=== PATIENT | female | born 1940 | race Caucasian/White ===

== ENCOUNTER 2018-05-18 08:57 | Day surgery (SDC) | payer OTHER ==
--- OUTSIDE RECORDS SUMMARY | 2018-05-18 09:16 | XMS REPORT | Clinical Summary ---
:1940 Author Organization [facility] Address [address] [place] [address] Care Team Providers Name Role Phone Sharpkaren Primary Care Provider Allergies Active Allergy Reactions Severity Noted Date Comments Benzoate Analogues Rash Low 10/05/2015 benzoperoxide Hydroxychloroquine Hives, Anxiety Low 10/05/2015 Unsure of reaction Pentazocine Lactate 10/05/2015 Unsure of reaction Medications Medication Sig Dispensed Refills Start Date End Date Status levothyroxine Take 88 mcg by 0 Active (SYNTHROID, LEVOTHROID) mouth daily. 88 MCG tabletIndications: hypothyroidism rosuvastatin (CRESTOR) Take 40 mg by 0 Active 40 MG tablet mouth daily. furosemide (LASIX) 40 MG Take 40 mg by 0 Active tablet mouth daily. amiodarone (PACERONE) Take 400 mg by 0 Active 400 MG mouth daily. 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 and thrombosis of deep vessels of lower extremity (HCC), Chronic diastolic heart failure, CAD (coronary artery disease), Dyslipidemia, Atrial fibrillation, Hypothyroidism (acquired), Chronic pulmonary heart disease (HCC) omeprazole (PRILOSEC) 20 Take 20 mg by 0 Active MG capsuleIndications: mouth daily. 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 traMADol (ULTRAM) 50 mg Take 50 mg by 0 Active tablet mouth every 6 (six) hours as needed for Pain. 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 Last Filed Vital Signs Not on file Plan of Treatment Not on file Results Not on fileafter 05/17/2017 Insurance Payer Benefit Plan / Group Subscriber ID Type Phone Address MEDICARE MEDICARE A B xxxxxxxxxx Medicare [employer] - [place] [place] HMO POS SELECT xxxxxxxxx HMO/POS CARE CHOICE Advance Directives For more information, please contact:[address] [phone] Code Status Date Activated Date Inactivated Comments Full Code 09/30/2015 6:54 PM 10/09/2015 12:13 PM This code status was determined by: Patient
[2018-05-18] MEDS ORDERED: CYCLOPENTOLATE 1% OPTH 2 ML ONE (09:29)
[2018-05-18] MEDS ORDERED: PHENYLEPHRINE 10% OPTH 5ML ONE (09:30)
[2018-05-18] MEDS ORDERED: NA CHLORIDE 0.9% 500 ML ONE (09:30)
[2018-05-18] MEDS: TETRACAINE HCL 0.5% 2ML OPTH ONE ×2 (09:31→11:03)
[2018-05-18] MEDS: BUPIVACAINE 0.25% PF 10 ML VIAL ONE ×2 (09:32→11:04)
[2018-05-18] MEDS: LIDOCAINE 2% MPF 5 ML VIAL ONE ×2 (09:32→11:04)
[2018-05-18] MEDS ORDERED: CYCLOPENTOLATE 1% OPTH 2 ML OPTH ONE ×2 (09:42→09:56)
[2018-05-18] MEDS ORDERED: PHENYLEPHRINE 10% OPTH 5ML OPTH ONE ×2 (09:42→09:56)
[2018-05-18] MEDS ORDERED: NS 0.9% VIAL 10 ML ONE (10:07)
[2018-05-18] MEDS: BALANCED SALT IRRIG PLAIN 500 ML BTL IRR ONE ×2 (10:30→11:09)
[2018-05-18] MEDS: EPINEPHRINE/PF 1 MG/ML AMP ONE ×2 (10:30→11:09)
[2018-05-18] MEDS: MOXIFLOXACIN HCL 10 DROPS/ML **OR USE OPTH ONE ×2 (10:31→11:09)
[2018-05-18] MEDS: DUOVISC 1 KIT OPTH ONE ×2 (10:31→11:09)
[2018-05-18] MEDS ORDERED: PROPOFOL 200 MG/20 ML VIAL IV ONE (10:33)
[2018-05-18] MEDS ORDERED: LIDOCAINE 2% MPF 5 ML VIAL ONE ×2 (10:33→11:27)
[2018-05-18] MEDS ORDERED: HYDRALAZINE HCL 20 MG/ML VIAL ONE (11:35)
--- NOTE | 2018-05-18 11:46 | P.BOP ---
Preoperative diagnosis: Nuclear sclerotic and posterior subcapsular cataract OD Postoperative diagnosis: Same Primary procedure: Phacoemulsification with IOL OD Estimated blood loss: None Anesthesia: Local (Subtenon's infusion with anesthesia for cataract surgery) Complications: None Implants: ZCB00 +21.5 Transferred to: Other (Day surgery) Condition: Good
[2018-05-18 12:16] VITALS: BP 171/75; TEMP 98.4; O2SAT 100
--- NOTE | 2018-05-18 22:32 | OP ---
Date of Procedure: 05/18/2018 Surgeon: Faviola Soriano MD Anesthesiologist: Raul Trujillo CRNA and Navi Hines MD. Preoperative Diagnoses: Nuclear sclerotic and posterior subcapsular cataract, right eye. Operation Performed: Phacoemulsification with intraocular lens implant, right eye. Anesthesia: Per cataract surgery. Complications: Description Of Procedure: In day surgery, the patient was prepped with Betadine and draped. A conju nctival incision was made in the inferior nasal quadrant with Gary scissors. A sub-Tenon block c onsisting of a 1:1 mixture of 2% Xylocaine and 0.25% bupivacaine was placed through the conjunctival incision with a blunt cannula. A Honan balloon was placed over the eye and the patient was transferr ed to the operating room. In the operating room the patient was prepped and draped in the usual sterile fashion for ophthalmic surgery. A lid speculum was placed in the right eye. Two paracentesis sites were made superiorly an d inferiorly in the limbal cornea. Viscoat was placed in the anterior chamber and a crescent blade w as used to make a corneal groove and tunnel, and a keratome was used to enter the anterior chamber. Provisc was placed in the anterior chamber and a 360 degree capsulotomy was performed with a cystitom e. The lens was hydrodissected with BSS and rotated freely. The lens was removed with a stop and ch op technique. 20.51 phaco CDE was used to remove the lens. Residual cortex was removed with the irr igation and aspiration. Provisc was placed in the capsular bag. A ZCB00 +21.5 lens was placed in th e capsular bag without complications. Irrigation and aspiration were used to remove residual viscoel astic. The paracentesis sites were hydrated with BSS. The wound and paracentesis sites were inspect ed and found to be watertight. Vigamox 0.07 cc was placed intracamerally at the end of the procedure . The eye was irrigated with balanced salt solution. The eye was patched with a soft cotton patch a nd Shaver metal shield. The patient was returned to day surgery in good condition. Comments: Trace residual PSC remained at the end of surgery. Discharge Instructions: Ms. Helms is discharged to home in good condition and is to follow up with Dr. Soriano in the morning. EMMETT/FREEMAN Voice ID: [id number] Report ID: [id number]
== END 2018-05-18 12:18 | disposition home or self-care (01) ==
LOC: OR 08:57
PROVIDERS: ATTEND Ophthalmology Retina Specialist
PROC: 08RJ3JZ Replacement of Right Lens with Synthetic Substitute, Percutaneous Approach (ICD-10-PCS; principal; 2018-05-18 10:00)
DX: H25.11 Age-related nuclear cataract, right eye (principal); H25.041 Posterior subcapsular polar age-related cataract, right eye; E03.9 Hypothyroidism, unspecified; E78.00 Pure hypercholesterolemia, unspecified; I10 Essential (primary) hypertension; M81.0 Age-related osteoporosis without current pathological fracture; M06.9 Rheumatoid arthritis, unspecified; Z95.1 Presence of aortocoronary bypass graft; Z79.01 Long term (current) use of anticoagulants; Z79.899 Other long term (current) drug therapy
CPT/HCPCS: 66984; J0360; J2704; J0171

== ENCOUNTER 2018-07-28 06:30 | Day surgery (SDC) | payer OTHER, BC ==
[2018-07-27 14:25] LABS: Absolute Lymphocytes (CBC) 1.5 K/uL (0.7-4.9); Absolute Monocytes 0.5 K/uL (0.1-1.3); Absolute Neutrophil 3.2 K/uL (1.8-8.0); Basophils % 0.8 % (0-1.3); Eosinophils % 1.6 % (0-4.4); Hematocrit 35.1 % (36.0-45.0); MPV 8.5 fL (7.6-11.3); Monocytes % 9.4 % (3.3-12.3); RBC Red Blood Cell Count 3.67 M/uL (3.86-4.86)
[2018-07-27 14:29] LABS: Protime INR 1.35
[2018-07-27 14:39] LABS: Potassium 4.5 mmol/L (3.5-5.1)
--- NOTE | 2018-07-27 14:46 | RAD REPORT ---
EXAM DESCRIPTION: RAD - Chest Pa And Lat (2 Views) - 07/27/2018 2:35 pm CLINICAL HISTORY: Preop chest, pending cardiac catheterization COMPARISON: November 2015 TECHNIQUE: PA and lateral views of the chest were obtained. FINDINGS: The lungs are clear of a focal abnormality. No failure or volume overload. Scattered fibro tic lung changes match comparison. Sternotomy wires are in place. Heart size is normal and central vasculature is within normal limits. No pleural effusion or pneumothorax seen. Osteopenic and degen erative bony changes are present. Partial compression fracture midthoracic vertebrae noted. No aortic abnormality. IMPRESSION: No acute cardiopulmonary process. Partial compression fracture midthoracic spine. No lytic or blastic change. This is likely chronic in the absence of any acute midthoracic symptoms.
--- OUTSIDE RECORDS SUMMARY | 2018-07-28 06:35 | XMS REPORT | Clinical Summary ---
:[address] [facility] Address [address] [place] [address] Care Team Providers Name Role Phone Sharpkaren [...] Not on file Results Not on fileafter 07/27/2017 Insurance Payer Benefit Plan / Group Subscriber ID Type Phone Address MEDICARE MEDICARE A B xxxxxxxxxx Medicare UNITED HE[employer] - [place]GD [place] HMO POS SELECT xxxxxxxxx HMO/POS CARE CHOICE Advance Directives For more information, please contact:[address] [phone] Code Status Date Activated Date Inactivated Comments Full Code 09/30/2015 6:54 PM 10/09/2015 12:13 PM This code status was determined by: Patient
[2018-07-28] MEDS ORDERED: NA CHLORIDE 0.9% 500 ML ONE (07:26)
[2018-07-28] MEDS ORDERED: HEPA 1000U/500MLS 1,000 UNIT/500 ML BAG IV ONE (07:55)
[2018-07-28] MEDS ORDERED: ATROPINE SULF 1 MG/10 ML SYR IV ONE (07:56)
[2018-07-28] MEDS ORDERED: FENTANYL CITR 100 MCG/2 ML ONE (07:56)
[2018-07-28] MEDS ORDERED: LIDOCAINE 1% MPF 30 ML VIAL ONE (07:56)
[2018-07-28] MEDS ORDERED: MIDAZOLAM HCL 2 MG/2 ML INJ ONE (07:56)
[2018-07-28] MEDS ORDERED: NA CHLORIDE 0.9% 0 ML ONE (07:56)
[2018-07-28] MEDS ORDERED: METOPROLOL TARTRATE 5 MG/5 ML INJ IV ONE ×2 (08:09→08:16)
[2018-07-28] MEDS ORDERED: cloNIDine HCl 0.1 MG TAB ONE (08:20)
[2018-07-28 11:09] VITALS: BP 119/64; TEMP 96.8; O2SAT 98
--- NOTE | 2018-07-28 18:14 | OP ---
Surgeon: Mario Perez MD Principal Associate: Taya Laguna. Admitted to my service as an outpatient today 07/28/2018. Procedures: Left heart catheterization, saphenous vein graft injection to the right coronary artery graft and a left internal mammary artery injection. History: Ms. Helms is 78, has a history of CAD. She is status post aortic valve replacement. RCA graft, circumflex stent with chest pain, positive stress test, hypertension, poorly controlled, admi tted as an outpatient today, prepped and draped in the routine sterile fashion, given Versed for IV s edation. She was given also 10 mg of IV Lopressor for her hypertension and 0.1 mg of clonidine as we ll for her hypertension. Left heart catheterization, vein graft injection and LINDER injection were do ne using a 6-Lao sheath in the right common femoral artery. Jason catheter was used. She was f ound to have a 40% LAD stenosis and 90% first diagonal stenosis, patent circumflex stent, 100% RCA wi th a patent graft to the RCA. The LINDER was injected, but it was not used. There were no complicatio ns. Blood Loss: 5 cc. Postoperative Diagnoses: Hypertension, coronary artery disease, moderate status post aortic valve re placement. Plan: Medical therapy. I am going to increase her propranolol to 80 b.i.d., and she can resume her Xarelto in a day or 2. Anesthesia: Total conscious sedation was 30 minutes. ROBB/FREEMAN Voice ID: [id number] Report ID: [id number]
== END 2018-07-28 10:50 | disposition home or self-care (01) ==
LOC: CCL 06:30
DX: I25.10 Atherosclerotic heart disease of native coronary artery without angina pectoris (principal); I25.82 Chronic total occlusion of coronary artery; I35.8 Other nonrheumatic aortic valve disorders; I65.23 Occlusion and stenosis of bilateral carotid arteries; I73.9 Peripheral vascular disease, unspecified; I10 Essential (primary) hypertension; E78.6 Lipoprotein deficiency; E03.9 Hypothyroidism, unspecified; K21.9 Gastro-esophageal reflux disease without esophagitis; F41.9 Anxiety disorder, unspecified; Z95.2 Presence of prosthetic heart valve; Z95.1 Presence of aortocoronary bypass graft; Z95.5 Presence of coronary angioplasty implant and graft; Z79.01 Long term (current) use of anticoagulants; Z86.718 Personal history of other venous thrombosis and embolism; Z88.8 Allergy status to other drugs, medicaments and biological substances; Z91.048 Other nonmedicinal substance allergy status; Z82.49 Family history of ischemic heart disease and other diseases of the circulatory system
CPT/HCPCS: 85025; 80048; 36415; 85610; 85730; 71046; 93455; C1893; J2250; J3010; J0583

== ENCOUNTER 2019-11-15 23:26 | Emergency (ER) | payer OTHER, BC ==
[2019-11-15] MEDS ORDERED: AMIODARONE HCL 150 MG/3 ML INJ IV ONE (23:27)
[2019-11-15] MEDS ORDERED: NA CHLORIDE 0.9% 1,000 ML IV ONE (23:27)
[2019-11-15] MEDS ORDERED: DOPAMINE 400 MG/250ML D5W PREMIX IV ONE (23:27)
[2019-11-15] MEDS ORDERED: Caclcium Chloride 10% INJ SYR IV ONE (23:27)
[2019-11-15] MEDS ORDERED: EPINEPHrine 1 MG/10 ML SYR IV ONE (23:27)
--- OUTSIDE RECORDS SUMMARY | 2019-11-15 23:28 | XMS REPORT | Clinical Summary ---
:[address] [facility] Address [address] [place] [address] Care Team Providers Name Role Phone Sharpkaren Primary Care Provider Allergies Active Allergy Reactions Severity Noted Date Comments Benzoate Analogues Rash Low 10/05/2015 benzopero xide Hydroxychloroquine Hives, Anxiety Low 10/05/2015 Unsure of reaction Pentazocine Lactate 10/05/2015 Unsure o f reaction Medications Medication Sig Dispensed Refills Start Date End Date Status levothyroxine Take 88 mcg by 0 A ctive (SYNTHROID, LEVOTHROID) mouth daily. 88 MCG tabletIndications: a condition with low thyroid hormone levels rosuvastatin (CRESTOR) Take 40 mg by 0 [...] Not on file Results Not on fileafter 11/14/2018 Insurance Payer Benefit Plan / Group Subscriber ID Type Phone A ddress MEDICARE MEDICARE A B xxxxxxxxxx Medicare [facility] [place] HMO POS SELECT xxxxxxxxx HMO/POS CARE CHOICE Advance Directives For more information, please contact:[address] [place], [place] [phone] Code Status Date Activated Date Inactivated Comments Full Code 09/30/2015 6:54 PM 10/09/2015 12:13 PM This code status was determined by: Patient
[2019-11-15] MEDS ORDERED: HEPARIN 5000 UNIT/ML 1 ML VIAL ONE (23:53)
[2019-11-15] MEDS ORDERED: HEPARIN/D5W 25,000 UNIT/500 ML BAG IV ONE (23:54)
[2019-11-16 00:05] LABS: Absolute Lymphocytes (CBC) 4.2 K/uL (0.7-4.9); Basophils % 1.2 % (0-1.3); Hematocrit 25.7 % (36.0-45.0); Lymphocytes % 50.5 % (15.3-44.8); MPV 9.1 fL (7.6-11.3)
[2019-11-16 00:08] LABS: Protime INR 2.48
[2019-11-16] MEDS ORDERED: EPINEPHrine 1 MG/10 ML SYR ONE (00:08)
[2019-11-16] MEDS ORDERED: TENECTEPLASE 50 MG/10 ML VIAL IV ONE (00:08)
[2019-11-16] MEDS ORDERED: AMIODARONE IN DEXTROSE,ISO-OSM 0 MG/0 ML BAG IV ONE (00:29)
[2019-11-16 00:31] LABS: Arterial Blood Carboxyhemoglob 1.2 % (0-1.5); Blood Gas Oxyhemoglobin 97.6 % (94-97); Blood O2 Saturation 99.8 % (92-98.5)
[2019-11-16 00:37] LABS: Albumin 2.3 g/dL (3.4-5.0); Bilirubin Direct 0.1 mg/dL (0-0.2); Bilirubin Total 0.2 mg/dL (0.2-1.0); Magnesium 2.2 mg/dL (1.8-2.4); Potassium 5.5 mmol/L (3.5-5.1); Protein, Total 6.4 g/dL (6.4-8.2)
[2019-11-16 00:38] LABS: Troponin (Emerg Dept Use Only) 0.59 ng/mL (0.0-0.045)
--- NOTE | 2019-11-16 00:38 | EDPHYS ---
Physician Documentation [facility] Name: Arti Helms Age: 79 yrs Sex: Female : 1940 Arrival Date: 11/15/2019 Time: 23:40 Bed 3 Private MD: ED Physician Jasiel Vargas HPI: 11/15 00:38 This 79 yrs old Female presents to ER via EMS with complaints of CPR. jr8 00:38 Preceding the arrest, the patient collapsed. The arrest occurred at home. Pre-hospital jr8 course: The arrest was witnessed by family. Bystanders at the scene did not perform CPR. EMS care prior to arrival: initiation of ACLS, peripheral IV, was successfully placed. intubation was successfully performed, using a 7.5 ET tube. oxygen, by BV to assist ventilations. 100% by ET tube. backboard, 5 minutes elapsed prior to ACLS. ACLS details: Initial rhythm was PEA. The presenting rhythm is PEA. Airway: Ambu assist ventilation, oral intubation, Medications given by EMS prior to arrival - Epinephrine IV x 3 doses, Response to therapy: continued arrest. The patient has not experienced similar symptoms in the past. It is unknown whether or not the patient has recently seen a physician. Historical: - Allergies: 11/14 23:45 BENZOYL PEROXIDE; sg 23:45 hydroxychloroquine sulfate; sg 23:45 pentazocine lactate; sg - PMHx: 23:45 Blood transfusions; Compression fracture low back; DVT LLE; Essential hand tremors; sg grave's disease; Osteoporosis; PE; Raynaud's Disease; Rheumatoid Arthritis; Systemic and Discoid Lupus; - PSHx: 23:45 Heart stents; Carotid artery stent; CABG; Aortic valve replaced; Filter for clots; sg Spinal surgery; Bunionectomy; Bilat hip surgeries; Right knee surgery; ROS: 11/15 00:38 Unable to obtain ROS due to obtunded state. jr8 Exam: 00:38 Eyes: Periorbital structures: appear normal, Pupils: are fixed and dilated, Lids and jr8 lashes: appear normal. 00:38 Cardiovascular: Rate: actual rate is 50 bpm, Rhythm: regular, Pulses: not palpable, Edema: 4+ edema to level of left midcalf, left ankle, left foot, right midcalf, right ankle and right foot. 00:38 ECG was reviewed by the Attending Physician. 00:38 Respiratory: Breath sounds: rales, that are mild, are heard diffusely, Respiratory rate: 10 bpm via bvm 00:38 Abdomen/GI: Inspection: distension, that is mild, scabs noted throughout abdomen. No bruising or other signs of trauma noted , Palpation: soft. 00:38 Skin: Appearance: Color: cyanotic, pale, Temperature: cool. Vital Signs: 11/14 23:41 BP 109 / 68; Pulse 62; Resp 18 A; Pulse Ox 98% on 15 lpm ETT ambu; sg 23:46 BP 68 / 57; Pulse 74; Resp 18 A; Pulse Ox 98% on 15 lpm ETT ambu; sg 11/15 00:00 BP 57 / 23; Pulse 50 MON; Resp 18 A; sg 00:05 BP 77 / 58; Pulse 63 MON; Pulse Ox 99% on ETT vent; sg 00:08 Weight 111.13 kg; sg 00:10 BP 67 / 55; Pulse 48 MON; Resp 18; Pulse Ox 98% on ETT ambu; sg Tingley Coma Score: 00:38 Eye Response: none(1). Verbal Response: none(1). Motor Response: none(1). Modifying jr8 Factors: Intubated. Total: 3. Procedures: 00:34 CPR: Initial patient assessment: unresponsive, cyanotic, pale, intubated, Ambu jr8 ventilation, pulses absent w/ compressions, The presenting cardiac rhythm is PEA. respirations assisted with BVM, ventilations per thumper, Compressions: began prior to arrival. Meds given: See Meds list. Defibrillation: 200 joules X 1. regained rhythm, intermittently, despite ED evaluation and treatment, the patient . Family notified. CPR was stopped at 12:22. Central Line: the site was prepped with Betadine, in sterile fashion, a triple lumen catheter was inserted, in the right femoral vein, in 1 attempts. placement was verified, by blood return, the site was dressed with Tegaderm, using sterile technique. 00:38 Ultrasound: Type: Cardiac exam, Bed side US of cardiac completed. Akinetic heart noted jr8 with no rhythmic activity . MDM: 00:09 Patient medically screened. jr8 00:32 Data reviewed: vital signs, nurses notes, lab test result(s), EKG. ED course: Patient fidelia had ROSC three times while in ED. Discussed severity of condition with patients and family. They initially wanted everything done but now wants us to withdrawal care at this time since she arrested again. Patient official TOD is 12:22. PEA with no cardiac activity via US and no pulses present. Family notified at that time . 00:34 Counseling: I had a detailed discussion with the patient and/or guardian regarding: the fidelia historical points, exam findings, and any diagnostic results supporting the discharge/admit diagnosis, lab results. ED course: Patient was initially transferred to [facility] for STEMI management but was canceled after she lost pulse again. 11/14 23:50 Order name: Basic Metabolic Panel [facility] 11/14 23:50 Order name: CBC with Diff; Complete Time: 00:46 mg2 11/14 23:50 Order name: LFT's; Complete Time: 00:46 mg2 11/14 23:50 Order name: Magnesium; Complete Time: 00:46 mg2 11/14 23:50 Order name: NT PRO-BNP; Complete Time: 00:46 mg2 11/14 23:50 Order name: PT-INR; Complete Time: 00:46 mg2 11/14 23:50 Order name: Troponin (emerg Dept Use Only); Complete Time: 00:46 mg2 11/14 23:51 Order name: Basic Metabolic Panel; Complete Time: 00:46 EDMS 11/15 00:12 Order name: Manual Differential; Complete Time: 00:46 EDMS 11/15 00:14 Order name: FSBG - FOR PT WITH NO ID; Complete Time: 00:46 sg 11/15 00:30 Order name: ABG Arterial Blood Gas; Complete Time: 00:46 EDMS 11/15 00:40 Order name: Slides for Pathologist Review EDIA 11/14 23:50 Order name: EKG; Complete Time: 23:51 mg2 11/14 23:50 Order name: Cardiac monitoring; Complete Time: 23:51 mg2 11/14 23:50 Order name: EKG - Nurse/Tech; Complete Time: 23:51 mg2 11/14 23:50 Order name: IV Saline Lock; Complete Time: 23:51 mg2 11/14 23:50 Order name: Labs collected and sent; Complete Time: 23:51 mg2 11/14 23:50 Order name: O2 Per Protocol; Complete Time: 23:51 mg2 11/14 23:50 Order name: O2 Sat Monitoring; Complete Time: 23:50 mg2 EC:38 Rate is 104 beats/min. Rhythm is regular, Sinus tachycardia. Right axis deviation jr8 noted. QRS interval is normal at 116 msec. QT interval is normal at 384 msec. No Q waves. T waves are Normal. ST Segment is elevated in leads V1, V2, V3, V4, V5, >5mm. Clinical impression: Anterior MO - acute and Lateral MO - acute. Interpreted by me. Reviewed by me. Administered Medications: 11/14 23:33 Drug: Sodium Bicarbonate 1 amp Route: IVP; Site: left hand; sg 23:38 Drug: amiodarone 150 mg Route: IVP; Site: left hand; sg 23:48 Drug: EPINEPHrine 0.1mg/mL 1:10,000 1 mg Route: IVP; Site: left hand; sg 23:50 Drug: Dopamine drip 5 mcg/kg/min - (DOPamine 400 mg, D5W 250 ml) Route: IV; Rate: sg calculated rate; Site: right femoral; 11/15 00:21 Follow up: Response: No adverse reaction; IV Status: Order to discontinue infusion sg 11/14 23:56 Drug: EPINEPHrine 0.1mg/mL 1:10,000 0.2 mg/kg Route: IVP; Site: right femoral; sg 11/15 00:01 Drug: EPINEPHrine 0.1mg/mL 1:10,000 1 mg Route: IVP; Site: right femoral; sg 00:03 Drug: Tenecteplase 50 mg {Co-Signature: mg2 (Bud Croft RN).} Route: IV; Rate: sg calculated rate; Site: right femoral; 00:03 Follow up: Response: No adverse reaction; IV Status: Completed infusion sg 00:04 Drug: EPINEPHrine 0.1mg/mL 1:10,000 1 mg Route: IVP; Site: right femoral; sg 00:11 Drug: Heparin (MO Drip) 12 units/kg/hr - (HEParin 54747 units, D5W 500 ml) sg {Co-Signature: mg2 (Bud Croft RN).} Route: IV; Rate: calculated rate; Site: right femoral; 00:21 Follow up: Response: No adverse reaction; IV Status: Order to discontinue infusion sg 00:12 Drug: Heparin (MO-Bolus with thrombolytic) - HEParin 60 units/kg {Co-Signature: mg2 sg (Bud Croft RN).} Route: IVP; Site: right femoral; 00:18 Follow up: Response: No adverse reaction sg 00:27 Not Given (Other Intervention Used): Heparin (MO-Bolus with thrombolytic) - HEParin 60 sg units/kg IVP once; Max 4000 units Disposition: Patient pronounced on 11/16/19 00:22 by Avila Jarrell. Impression: ST elevation (STEMI) myocardial infarction involving left anterior descending coronary artery, ST elevation (STEMI) myocardial infarction involving left circumflex coronary artery, Cardiac arrest due to underlying cardiac condition. - Released to Home. Signatures: Dispatcher [employer] EDMS Paolo Philippe RN RN sg Avila Jarrell, DALY KAUFFMAN jr8 Bud Croft RN RN mg2 Bud Croft RN mg2 Corrections: (The following items were deleted from the chart) 00:36 11/14 23:51 Chest Single View+[email or web address] ordered. EDIA EDIA 11/15 06:14 00:38 11/16/2019 00:38 Patient pronounced on 11/16/2019 at 00:22 by Avila Jarrell. sg Impression: ST elevation (STEMI) myocardial infarction involving left anterior descending coronary artery; ST elevation (STEMI) myocardial infarction involving left circumflex coronary artery; Cardiac arrest due to underlying cardiac condition. Released to Home. jr8
--- NOTE | 2019-11-16 00:38 | ER ---
Nurse's Notes [facility] Name: Arti Helms Age: 79 yrs Sex: Female : 1940 Arrival Date: 11/15/2019 Time: 23:40 Bed 3 Private MD: Diagnosis: ST elevation (STEMI) myocardial infarction involving left anterior descending coronary artery;ST elevation (STEMI) myocardial infarction involving left circumflex coronary artery;Cardiac arrest due to underlying cardiac condition Presentation: 11/14 23:26 Chief complaint: EMS states: pt was using the restroom when family saw her lean forward sg and go unresponsive, family called for EMS help, EMS toned for unresponsive pt at 2230, EMS started CPR upon arrival. Care prior to arrival: Assisted ventilation, Oral intubation, CPR via thumper performed by EMS and is still in progress Placed on backboard. Medication(s) given: EPI X 3 IV initiated. I/O to left tib, I/O to right shoulder Oxygen administered. via AMBU bag. Compressions began at 22:30. 23:26 Method Of Arrival: EMS: [facility] sg 23:26 Acuity: MERNA 1 sg Historical: - Allergies: 23:45 BENZOYL PEROXIDE; sg 23:45 hydroxychloroquine sulfate; sg 23:45 pentazocine lactate; sg - PMHx: 23:45 Blood transfusions; Compression fracture low back; DVT LLE; Essential hand tremors; sg grave's disease; Osteoporosis; PE; Raynaud's Disease; Rheumatoid Arthritis; Systemic and Discoid Lupus; - PSHx: 23:45 Heart stents; Carotid artery stent; CABG; Aortic valve replaced; Filter for clots; sg Spinal surgery; Bunionectomy; Bilat hip surgeries; Right knee surgery; Screenin:26 Abuse screen: unable to assess. Nutritional screening: unable to assess. Tuberculosis sg screening: unable to assess. Assessment: 23:26 CPR assessment: unresponsive, no respiratory effort, intubated, Ambu ventilation, sg cyanotic, pale, pulses present w/ compressions. Cardiac rhythm is PEA. 23:34 Reassessment: pulse check, Vtach on the monitor, rhythm shocked with 200 J of sg unsynchronized cardio version, pt to sinus tach on the monitor with palpable pulses via bilateral femoral area per ERP. 23:55 CPR assessment: unresponsive. CPR assessment: no respiratory effort, Ambu ventilation, sg pale, pulses present w/ compressions, pt remains intubated at this time. Cardiac rhythm is PEA. 11/15 00:01 Reassessment: PEA, no pulses palpated, CPR continues. sg 00:04 Reassessment: PEA per Ava RESTRIKE HAMMER OPERATOR, Avila KAUFFMAN, administered EPI IVP as ordered, CPR sg continues. 00:05 Reassessment: pulse check by ERP at this time. sg 00:06 Reassessment: palpable pulses at this time. sg 00:17 Reassessment: HR on monitor 32 bpm, no palpable pulses at this time, ERP Avila KAUFFMAN at bedside with [employer] nurse, hold CPR per pt family wishes, ultrasound to bedside per ERP order. 00:18 Reassessment: ultrasound at bedside for verification of PEA at this time. sg 00:19 Reassessment: ETCO2 dropped to 15, Avila KAUFFMAN at bedside, pulse check with no palpable sg pulses, ultrasound at bedside performed by ERP Avila KAUFFMAN. 00:20 Reassessment: no activity reported by ERP via ultrasound at this time. sg 00:22 Reassessment: Time of 21. sg 00:50 Reassessment: [facility] contacted, coordinator Taya, case number is [id number], sg reports is not a candidate for donation at this time. 02:38 Reassessment: Judge Spear at bedside at this time, awaiting orders to release the body sg at this time. 06:12 Reassessment: please note no personal effects were with pt while in the care of the ED. sg 06:16 Reassessment: pt released to [facility] with undertaker. sg Vital Signs: 11/14 23:41 BP 109 / 68; Pulse 62; Resp 18 A; Pulse Ox 98% on 15 lpm ETT ambu; sg 23:46 BP 68 / 57; Pulse 74; Resp 18 A; Pulse Ox 98% on 15 lpm ETT ambu; sg 11/15 00:00 BP 57 / 23; Pulse 50 MON; Resp 18 A; sg 00:05 BP 77 / 58; Pulse 63 MON; Pulse Ox 99% on ETT vent; sg 00:08 Weight 111.13 kg; sg 00:10 BP 67 / 55; Pulse 48 MON; Resp 18; Pulse Ox 98% on ETT ambu; sg Vitals: 11/14 23:55 Cardiac Rhythm Assessment PEA. sg Fingal Coma Score: 11/15 00:38 Eye Response: none(1). Verbal Response: none(1). Motor Response: none(1). Modifying jr8 Factors: Intubated. Total: 3. ED Course: 11/14 23:26 Arm band placed on. sg 23:26 Inserted saline lock: 20 gauge in left hand, using aseptic technique. sg 23:29 Patient has correct armband on for positive identification. industrial spray painter on. Pulse sg ox on. NIBP on. pt placed to [facility]. 23:39 EKG completed in triage. Results shown to MD. sg 23:40 Patient arrived in ED. sg 23:43 Triage completed. sg 11/15 00:00 Assisted provider with central line placement. Set up central line tray. Triple lumen sg line placed in right femoral. Line placed by Avila KAUFFMAN Placement verified by blood return, Dressed with Tegaderm, Blood was collected. Was procedure site sterilized? Yes, with chlorhexidine. Was the site allowed to dry? Yes. Were unused ports clamped during insertion? Yes. Was a 2nd qualified MD obtained after 3 unsuccessful insertion attempts? No. Was blood aspirated from each lumen? Yes. 00:05 NGT: inserted 16 Fr. via left nare. verified placement of air over stomach, verified mg2 return of gastric contents, Patient tolerated well. 00:07 Paolo Philippe, GILBERT is Primary Nurse. sg 00:09 Avila Jarrell PA is PHCP. jr8 00:09 Jasiel Vargas MD is Attending Physician. jr8 00:10 Monsalve cath inserted, using sterile technique, 16 Fr., by ED staff, balloon inflated. mg2 00:37 Avila Jarrell PA is Pronouncing Provider. jr8 00:38 Notified Nurse Practitioner and/or Physician [place] Operator of a critical lab result(s), bb troponin of 0.59 Avila KAUFFMAN notified. 06:16 all invasive medical equipment remains intact with the pt for transport to home.sg Administered Medications: 11/14 23:33 Drug: Sodium Bicarbonate 1 amp Route: IVP; Site: left hand; sg 23:38 Drug: amiodarone 150 mg Route: IVP; Site: left hand; sg 23:48 Drug: EPINEPHrine 0.1mg/mL 1:10,000 1 mg Route: IVP; Site: left hand; sg 23:50 Drug: Dopamine drip 5 mcg/kg/min - (DOPamine 400 mg, D5W 250 ml) Route: IV; Rate: sg calculated rate; Site: right femoral; 11/15 00:21 Follow up: Response: No adverse reaction; IV Status: Order to discontinue infusion sg 11/14 23:56 Drug: EPINEPHrine 0.1mg/mL 1:10,000 0.2 mg/kg Route: IVP; Site: right femoral; sg 11/15 00:01 Drug: EPINEPHrine 0.1mg/mL 1:10,000 1 mg Route: IVP; Site: right femoral; sg 00:03 Drug: Tenecteplase 50 mg {Co-Signature: mg2 (Bud Croft RN).} Route: IV; Rate: sg calculated rate; Site: right femoral; 00:03 Follow up: Response: No adverse reaction; IV Status: Completed infusion sg 00:04 Drug: EPINEPHrine 0.1mg/mL 1:10,000 1 mg Route: IVP; Site: right femoral; sg 00:11 Drug: Heparin (IN Drip) 12 units/kg/hr - (HEParin 08209 units, D5W 500 ml) sg {Co-Signature: mg2 (Bud Croft RN).} Route: IV; Rate: calculated rate; Site: right femoral; 00:21 Follow up: Response: No adverse reaction; IV Status: Order to discontinue infusion sg 00:12 Drug: Heparin (IN-Bolus with thrombolytic) - HEParin 60 units/kg {Co-Signature: mg2 sg (Bud Croft RN).} Route: IVP; Site: right femoral; 00:18 Follow up: Response: No adverse reaction sg 00:27 Not Given (Other Intervention Used): Heparin (IN-Bolus with thrombolytic) - HEParin 60 sg units/kg IVP once; Max 4000 units Outcome: 00:22 Patient : Time of 00:22 Pronounced by Avila KAUFFMAN sg 00:22 Condition: 06:12 Patient : Body to home. sg 06:14 Patient left the ED. sg Signatures: Paolo Philippe RN RN Rosibel Limon RN RN bb Roszak, Josh, PA PA jr8 Bud Croft RN RN mg2 Bud Croft RN mg2 Corrections: (The following items were deleted from the chart) 00:09 00:00 BP 77 / 58; Pulse 63bpm; Monitor; Pulse Ox 99% ET / Ventilator; sg sg 00:23 00:18 Reassessment: Time of 0022 [facility]
[2019-11-16 00:39] LABS: Platelet Estimate DECR
[2019-11-16 00:40] LABS: Anisocytosis 1+; Blood Morphology Comment NOTED (NOT SEEN); Polychromasia 1+
[2019-11-16 08:34] VITALS: BP 67/55; O2SAT 98
--- NOTE | 2019-11-16 10:44 | EKG ---
Test Date: 2019-11-15 Test Time: 23:42:26 [employer] Principal: JESSICA MEASUREMENT RESULTS: Intervals: Rate: 112 [place]: QRSD: 136 QT: 412 QTc: 562 [place]: P: [place]: QRS: 170 T: 35 INTERPRETIVE STATEMENTS: vt...Nonspecific intraventricular block Possible Anterolateral infarct, age undetermined T wave abnormality, consider inferior ischemia Abnormal ECG Compared to ECG 11/15/2019 23:41:52 T-wave abnormality now present Possible ischemia now present Accelerated junctional rhythm no longer present Fusion complex(es) no longer present Myocardial infarct finding still present Electronically Signed On 11-16-19 10:44:07 CDT by Mario Perez
--- NOTE | 2019-11-16 10:44 | EKG ---
Test Date: 2019-11-16 Test Time: 00:10:06 [employer]nament[employer] Brick Installer: JESSICA MEASUREMENT RESULTS: Intervals: Rate: 50 [place]: QRSD: 154 QT: 478 QTc: 435 [place]: P: [place]: QRS: 106 T: 40 INTERPRETIVE STATEMENTS: Wide QRS rhythm Right bundle branch block Septal infarct, age undetermined Inferior injury pattern ACUTE NM Consider right ventricular involvement in acute inferior infarct Abnormal ECG Compared to ECG 11/15/2019 23:42:26 Uncertain supraventricular rhythm now present Right bundle-branch block now present T-wave abnormality no longer present Possible ischemia no longer present Myocardial infarct finding still present Electronically Signed On 11-16-19 10:43:46 CDT by Mario Perez
== END 2019-11-16 06:14 | disposition expired ==
LOC: ER 23:26
DX: I21.02 ST elevation (STEMI) myocardial infarction involving left anterior descending coronary artery (principal); I21.21 ST elevation (STEMI) myocardial infarction involving left circumflex coronary artery; Z95.1 Presence of aortocoronary bypass graft; Z95.4 Presence of other heart-valve replacement; Z95.818 Presence of other cardiac implants and grafts; Z88.8 Allergy status to other drugs, medicaments and biological substances
CPT/HCPCS: 92977; 93005 ×2; 85025; 80048; 36415; 83735; 85610; 82947; 80076; 84484; 83880; 82805; 51702; 92950; 99291; J0282; J1644 ×2; J3101; J0171; J1265; J7060; J7030